=== PATIENT | female | born 1975 | race Caucasian/White ===

== ENCOUNTER 2017-09-18 05:20 | Emergency (ER) | payer OTHER ==
--- NOTE | 2017-09-18 06:12 | EDPHYS ---
Physician Documentation [facility] Name: Fatmata Hyde Age: 42 yrs Sex: Female : 1975 Arrival Date: 09/18/2017 Time: 05:24 Bed 18 Private MD: Darron Muniz E ED Physician Jorge Blanco HPI: 09/18 06:13 This 42 yrs old Female presents to ER via Ambulatory with complaints of snw Toothache, Abdominal Pain. 06:13 The patient presents with pain, swelling. The problem is located in the upper left snw second molar. Onset: The symptoms/episode began/occurred acutely, and became worse and became persistent. Duration: The symptoms are continuous, and are steadily getting worse. Associated signs and symptoms: The patient has no apparent associated signs or symptoms. Severity of symptoms: At their worst the symptoms were moderate, severe. It is unknown whether or not the patient has had similar symptoms in the past. The patient has not recently seen a physician, called but was unable to secure a timely appointment for an office visit, states she just wants antibiotics to get to her appt. To call next week for appt. 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 - Social history:: Smoking status: Patient uses tobacco products, smokes one-half pack cigarettes per day, Patient uses alcohol, on a daily basis. street drugs, marijuana. - Ebola Screening: : Patient negative for fever greater than or equal to 101.5 degrees Fahrenheit, and additional compatible Ebola Virus Disease symptoms Patient denies exposure to infectious person Patient denies travel to an Ebola-affected area in the 21 days before illness onset. ROS: 06:13 Constitutional: Negative for fever, chills, and weight loss, Eyes: Negative for injury, snw pain, redness, and discharge, Neck: Negative for injury, pain, and swelling, Cardiovascular: Negative for chest pain, palpitations, and edema, Respiratory: Negative for shortness of breath, cough, wheezing, and pleuritic chest pain, Back: Negative for injury and pain, : Negative for injury, bleeding, discharge, and swelling, MS/Extremity: Negative for injury and deformity, Skin: Negative for injury, rash, and discoloration, Neuro: Negative for headache, weakness, numbness, tingling, and seizure. 06:13 ENT: Positive for dental pain, x 3 weeks, worsening over past week.. 06:13 Abdomen/GI: Positive for abdominal pain, of the right upper quadrant, left upper quadrant, right lower quadrant and left lower quadrant, x 1 yr. Exam: 06:13 Head/Face: Normocephalic, atraumatic. Eyes: Pupils equal round and reactive to light, snw extra-ocular motions intact. Lids and lashes normal. Conjunctiva and sclera are non-icteric and not injected. Cornea within normal limits. Periorbital areas with no swelling, redness, or edema. Neck: Trachea midline, no thyromegaly or masses palpated, and no cervical lymphadenopathy. Supple, full range of motion without nuchal rigidity, or vertebral point tenderness. No Meningismus. Chest/axilla: Normal chest wall appearance and motion. Nontender with no deformity. No lesions are appreciated. Cardiovascular: Regular rate and rhythm with a normal S1 and S2. No gallops, murmurs, or rubs. Normal PMI, no JVD. No pulse deficits. Respiratory: Lungs have equal breath sounds bilaterally, clear to auscultation and percussion. No rales, rhonchi or wheezes noted. No increased work of breathing, no retractions or nasal flaring. Back: No spinal tenderness. No costovertebral tenderness. Full range of motion. Skin: Warm, dry with normal turgor. Normal color with no rashes, no lesions, and no evidence of cellulitis. MS/ Extremity: Pulses equal, no cyanosis. Neurovascular intact. Full, normal range of motion. Neuro: Awake and alert, GCS 15, oriented to person, place, time, and situation. Cranial nerves II-XII grossly intact. Motor strength 5/5 in all extremities. Sensory grossly intact. Cerebellar exam normal. Normal gait. 06:13 Constitutional: The patient appears alert, awake, anxious, restless. 06:13 ENT: External ear(s): no acute changes, TM's: no acute changes, Nose: no acute changes, Mouth: is normal, Posterior pharynx: is normal, Dental exam: dental caries, that is moderate, missing teeth, specifically the upper right third molar (#1) and upper left third molar (#16), pain, that is moderate, specifically in the upper left second molar (#15), Voice: is normal. 06:13 Abdomen/GI: Inspection: abdomen appears normal, Bowel sounds: normal, Palpation: mild abdominal tenderness, in all quadrants. Vital Signs: 05:37 BP 123 / 69; Pulse 65; Resp 16; Temp 98.0(O); Pulse Ox 100% on R/A; Weight 49.9 kg (R); ao Height 5 ft. 4 in. (162.56 cm) (R); Pain 10/10; 05:37 Body Mass Index 18.88 (49.90 kg, 162.56 cm) ao MDM: 06:07 Patient medically screened. snw 06:22 Data reviewed: vital signs, nurses notes. Data interpreted: Pulse oximetry: on room air snw is 100 %. Interpretation: normal. Counseling: I had a detailed discussion with the patient and/or guardian regarding: the historical points, exam findings, and any diagnostic results supporting the discharge/admit diagnosis, the need for outpatient follow up, to return to the emergency department if symptoms worsen or persist or if there are any questions or concerns that arise at home. Special discussion: Based on the patient's Hx, exam, and Dx evaluation, there is no indication for emergent surgery or inpatient Tx. It is understood by the patient/guardian that if the Sx's persist or worsen they need to return immediately for re-evaluation. Based on the history and exam findings, there is no indication for further emergent testing or inpatient evaluation. I discussed with the patient/guardian the need to see a dentist for further evaluation of the symptoms. I discussed with the patient/guardian the need to see the primary care provider for further evaluation of the symptoms. Administered Medications: 06:30 Drug: TORadol 60 mg Route: IM; Site: right gluteus; ao 06:30 Follow up: Response: No adverse reaction ao 06:30 Drug: Clindamycin 300 mg Route: PO; ao 06:31 Follow up: Response: Medication administered at discharge. ao Disposition: 09/18/17 06:12 Discharged to Home. Impression: Dental caries, unspecified. - Condition is Stable. - Discharge Instructions: Dental Abscess, Dental Pain, Diet and Dental Disease. - Prescriptions for Clindamycin HCl 150 mg Oral Capsule - take 2 capsule by ORAL route every 8 hours for 10 days; 60 capsule. Diclofenac Sodium 75 mg Oral Tablet Sustained Release - take 1 tablet by ORAL route 2 times per day; 30 tablet. - Medication Reconciliation Form, Thank You Letter, Antibiotic Education, Prescription Opioid Use form. - Follow up: Darron Muniz MD; When: 2 - 3 days; Reason: Recheck today's complaints, Continuance of care, Re-evaluation by your physician. Follow up: Emergency Department; When: As needed; Reason: Worsening of condition. Addendum: 09/20/2017 12:40 Co-signature as Attending Physician, Jorge Blanco MD Available for consultation at p s1 all times. . Signatures: Juju Jones, MARKER MAKER-C MARKER MAKER-Csnw Chuck Lim RN RN Jorge Banks MD MD ps1 Corrections: (The following items were deleted from the chart) 09/18 06:33 06:12 09/18/2017 06:12 Discharged to Home. Impression: Dental caries, unspecified. ao Condition is Stable. Forms are Medication Reconciliation Form, Thank You Letter, Antibiotic Education, Prescription Opioid Use. Follow up: Darron Muniz; When: 2 - 3 days; Reason: Recheck today's complaints, Continuance of care, Re-evaluation by your physician. Follow up: Emergency Department; When: As needed; Reason: Worsening of condition. snw
--- NOTE | 2017-09-18 06:12 | ER ---
Nurse's Notes [facility] Name: Fatmata Hyde Age: 42 yrs Sex: Female : 1975 Arrival Date: 09/18/2017 Time: 05:24 Bed 18 Private MD: Darron Muniz E Diagnosis: Dental caries, unspecified Presentation: 09/18 05:33 Presenting complaint: Patient states: Tooth abscess for a week. Patient unable to ao follow with a dentist. Patient also C/O abdominal pain and nausea for a week. Transition of care: patient was not received from another setting of care. Onset of symptoms is unknown. Risk Assessment: Do you want to hurt yourself or someone else? Patient reports no desire to harm self or others. Initial Sepsis Screen: Does the patient meet any 2 criteria? No. Patient's initial sepsis screen is negative. Does the patient have a suspected source of infection? No. Patient's initial sepsis screen is negative. Care prior to arrival: None. 05:33 Method Of Arrival: Ambulatory ao 05:33 Acuity: ISA 3 ao Triage Assessment: 05:44 General: Behavior is anxious. EENT: Reports difficulty swallowing. 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 - Social history:: Smoking status: Patient uses tobacco products, smokes one-half pack cigarettes per day, Patient uses alcohol, on a daily basis. street drugs, marijuana. - Ebola Screening: : Patient negative for fever greater than or equal to 101.5 degrees Fahrenheit, and additional compatible Ebola Virus Disease symptoms Patient denies exposure to infectious person Patient denies travel to an Ebola-affected area in the 21 days before illness onset. Screenin:39 Abuse screen: Denies threats or abuse. Denies injuries from another. Nutritional ao screening: No deficits noted. Tuberculosis screening: No symptoms or risk factors identified. Fall Risk None identified. Assessment: 05:41 General: Appears in no apparent distress. uncomfortable. Pain: Complains of pain in ao left cheek, mouth, left jaw and abdomen Pain currently is 10 out of 10 on a pain scale. Is continuous. Neuro: Level of Consciousness is awake, alert, obeys commands, Oriented to person, place, time, situation, Appropriate for age Moves all extremities. Speech is normal, Facial symmetry appears normal. Cardiovascular: Heart tones S1 S2 Capillary refill < 3 seconds Patient's skin is warm and dry. Respiratory: Airway is patent Respiratory effort is even, unlabored, Respiratory pattern is regular, symmetrical. GI: Abdomen is non-distended. : No signs and/or symptoms were reported regarding the genitourinary system. EENT: Derm: Skin is pink, warm \T\ dry. Skin temperature is warm. Musculoskeletal: Circulation, motion, and sensation intact. Range of motion:. 06:32 Reassessment: Dc instructions given to patient and patient agree with the POC and to ao follow up with PCP. Patient has no questions at this time. Vital Signs: 05:37 BP 123 / 69; Pulse 65; Resp 16; Temp 98.0(O); Pulse Ox 100% on R/A; Weight 49.9 kg (R); ao Height 5 ft. 4 in. (162.56 cm) (R); Pain 10/10; 05:37 Body Mass Index 18.88 (49.90 kg, 162.56 cm) ao ED Course: 05:24 Patient arrived in ED. al2 05:24 Darron Muniz MD is Private Physician. al2 05:33 Chuck Lim, NEREYDA is Primary Nurse. ao 05:34 Triage completed. ao 05:38 Arm band placed on right wrist. Patient placed in an exam room, on a stretcher, on ao pulse oximetry, Patient notified of wait time. 05:41 Patient has correct armband on for positive identification. Pulse ox on. NIBP on. ao 06:06 Juju Jones FNP-C is [facility]. snw 06:06 Jorge Blanco MD is Attending Physician. snw 06:11 Darron Muniz MD is Referral Physician. snw 06:31 No provider procedures requiring assistance completed. Patient did not have IV access ao during this emergency room visit. Administered Medications: 06:30 Drug: TORadol 60 mg Route: IM; Site: right gluteus; ao 06:30 Follow up: Response: No adverse reaction ao 06:30 Drug: Clindamycin 300 mg Route: PO; ao 06:31 Follow up: Response: Medication administered at discharge. ao Outcome: 06:12 Discharge ordered by MD. snw 06:31 Discharged to home ambulatory. ao 06:31 Condition: stable 06:31 Discharge instructions given to patient, Instructed on discharge instructions, follow up and referral plans. Demonstrated understanding of instructions, follow-up care, medications, Prescriptions given X 2. 06:33 Patient left the ED. ao Signatures: Juju Jones, TELMA-C PATROL AGENT-Chuck Shelton, RN RN Vanna Bazan
[2017-09-18] MEDS ORDERED: CLINDAMYCIN HCL 150 MG CAP ONE (06:22)
[2017-09-18] MEDS ORDERED: KETOROLAC 30 MG/ML INJ ONE ×2 (06:22→06:24)
== END 2017-09-18 06:33 | disposition home or self-care (01) ==
LOC: ER 05:20
DX: K02.9 Dental caries, unspecified (principal); D64.9 Anemia, unspecified; F17.210 Nicotine dependence, cigarettes, uncomplicated
CPT/HCPCS: 96372; 99283